=== PATIENT | female | born 1970 | race Caucasian/White ===

== ENCOUNTER 2017-05-10 10:14 | Emergency (ER) | payer BC ==
[2017-05-10 12:18] VITALS: BP 150/110
--- NOTE | 2017-05-10 12:47 | UC ---
Respiratory Complaint HPI - HPI Summary HPI Summary: 4 day history of uri symptoms that are not improving - History of Current Complaint Chief Complaint: UCRespiratory Stated Complaint: SINUS INFECTION/L EAR PAIN/COUGH Time Seen by Provider: 05/10/17 12:36 Hx Obtained From: Patient Hx Last Menstrual Period: 05/09/17 ?: No Onset/Duration: Gradual Onset, Lasting Days - 4, Still Present Timing: Constant Severity Initially: Moderate Severity Currently: Moderate - Allergies/Home Medications Allergies/Adverse Reactions: Allergies Allergy/AdvReac Type Severity Reaction Status Date / Time Penicillins Allergy Mild Rash Verified 05/10/17 10:30 Sulfa Drugs Allergy Mild Rash Verified 05/10/17 10:30 Erythromycin AdvReac Mild GI Upset Verified 05/10/17 10:30 Home Medications: Home Medications Hydrochlorothiazide TAB* [Hydrodiuril TAB*] 12.5 mg PO DAILY 05/10/17 [History Confirmed 05/10/17] PMH/Surg Hx/FS Hx/Imm Hx Previously Healthy: No Cardiovascular History: Hypertension - Surgical History Surgical History: Yes Surgery Procedure, Year, and Place: TONSILLECTOMY 1985 - Family History Known Family History: Positive: None, Unknown, Hypertension, Diabetes - Social History Occupation: Employed Full-time Lives: With Family Alcohol Use: Occasionally Substance Use Type: None Smoking Status (MU): Never Smoked Tobacco Review of Systems Constitutional: Chills, Fatigue Skin: Negative Eyes: Negative ENT: Ear Ache - left, Sinus Congestion, Sinus Pain/Tenderness Respiratory: Negative Cardiovascular: Negative Gastrointestinal: Negative Genitourinary: Negative Motor: Negative Neurovascular: Negative Musculoskeletal: Arthralgia Neurological: Headache Psychological: Negative Is Patient Immunocompromised?: No All Other Systems Reviewed And Are Negative: Yes Physical Exam Triage Information Reviewed: Yes Appearance: Well-Nourished, Ill-Appearing, Pain Distress Vital Signs: Initial Vital Signs Temp 99.4 F 05/10/17 10:31 Pulse 121 05/10/17 10:31 Resp 20 05/10/17 10:31 BP 145/96 05/10/17 10:31 Pulse Ox 99 05/10/17 10:31 Vital Signs Reviewed: Yes Eye Exam: Normal Eyes: Positive: Conjunctiva Clear ENT Exam: Normal ENT: Positive: Normal ENT inspection, Hearing grossly normal, Pharynx normal, Nasal congestion, Nasal drainage, TMs normal - right, TM bulging - left, Sinus tenderness, Uvula midline. Negative: Trismus, Muffled voice, Hoarse voice, Dental tenderness Dental Exam: Normal Neck exam: Normal Neck: Positive: Supple, Nontender, No Lymphadenopathy Respiratory Exam: Normal Respiratory: Positive: Chest non-tender, Lungs clear, Normal breath sounds, No respiratory distress, No accessory muscle use Cardiovascular Exam: Normal Cardiovascular: Positive: RRR, No Murmur, Brisk Capillary Refill, Tachycardia Musculoskeletal Exam: Normal Musculoskeletal: Positive: Strength Intact, ROM Intact, No Edema Neurological Exam: Normal Neurological: Positive: Alert, Muscle Tone Normal Psychological Exam: Normal Skin Exam: Normal UC Diagnostic Evaluation - Laboratory O2 Sat by Pulse Oximetry: 98 Diagnostic Studies Comment: Strep (-), Flu A/B (-) Respiratory Course/Dx - Course Course Of Treatment: Ceftin, flonase stop products with sudafed in them follow blood pressure with pcp - Differential Dx/Diagnosis Provider Diagnoses: Acute left otitis Media, Sinusitis Discharge - Discharge Plan Condition: Stable Disposition: HOME Prescriptions: Cefuroxime Axetil [Ceftin 500 MG TAB] 500 mg PO BID #14 tab Fluticasone NASAL SPRAY 50MCG* [Flonase NASAL SPRAY 50MCG*] 2 spray BOTH NARES DAILY #1 btl Patient Education Materials: Otitis Media (ED), Hypertension (ED), How to Use Nasal [place] (ED) Referrals: Brielle Diaz MD [Primary Care Provider] - 2 Weeks
== END 2017-05-10 13:05 | disposition home or self-care (01) ==
LOC: UCEAST 10:14
DX: H66.92 Otitis media, unspecified, left ear (principal); J32.9 Chronic sinusitis, unspecified; I10 Essential (primary) hypertension
CPT/HCPCS: 87502; 87651; 99212; G0463

== ENCOUNTER 2017-05-29 07:18 | Emergency (ER) | payer BC ==
[2017-05-29 07:52] VITALS: BP 140/115
--- NOTE | 2017-05-29 08:20 | UC ---
Esau Ritchie Jason, [facility] for [facility] on 05/29/17 at 0743 . Throat Pain/Nasal Reuben HPI - HPI Summary HPI Summary: In Room: This patient is a 46 year old F presenting to [facility] with a chief complaint of sore throat since 1 week ago. The patient rates the pain 4/10 in severity. Symptoms aggravated by swallowing. Symptoms alleviated by nothing. Patient reports sore throat, nasal congestion, trouble swallowing, and fatigue. Patient denies nausea, vomiting diarrhea, sinus pain, and ear symptoms. The patient includes that she has been seeing Dr. Zaysa (ENT) and had a dx of arthritis of the left stapes bone. Additionally, she states that when I was child I didnt have ear infections. Not until I was older I got a sinus infection and cold and began experiencing ear symptoms. After finishing the antibiotic treatment was completed from her visit on 05/10/17, she states her ear infection and cold was gone for a week and additional sx came back with a sore throat. The patient is currently taking Hydrochlorothiazide for HTN. MD note: Review of visit history: seen 05/10/17 with a dx of left otitis media , sinusitis, started on 7 days of ceftin. Previous hx of sore throat, ruptured ear drum, sinus congestion. Multiple allergies to antibiotics. Being treated for HTN. VSS, BP 140/115 discussed with patient. Nurses note: Patient states in April she had a cold with an ear infection. She came here and was started on an antibiotic. About a week later she started to have a sore throat again, which has been going on for a week now. She also has nasal congestion. Occasionally she has a productive cough with yellow phlegm . - History of Current Complaint Stated Complaint: SORE THROAT Time Seen by Provider: 05/29/17 07:24 Hx Obtained From: Patient Hx Last Menstrual Period: 05/09/17 Onset/Duration: Gradual Onset, Lasting Weeks - since 1 week ago, Still Present Pain Scale Used: 0-10 Numeric Cough: None Associated Signs & Symptoms: Positive: Rash - sore throat, nasal congestion, trouble swallowing, and fatigue. Patient denies nausea, vomiting diarrhea, sinus pain, ear symptoms - Allergies/Home Medications Allergies/Adverse Reactions: Allergies Allergy/AdvReac Type Severity Reaction Status Date / Time Penicillins Allergy Mild Rash Verified 05/29/17 07:41 Sulfa Drugs Allergy Mild Rash Verified 05/29/17 07:41 Erythromycin AdvReac Mild GI Upset Verified 05/29/17 07:41 Home Medications: Home Medications Cwxugybzfdirkgar-Rrxujgfpuiy-N [Coricidin Hbp Day & Night 10-20 &15-200-2 mg] 1 mis PO DAILY PRN 05/29/17 [History Confirmed 05/29/17] PMH/Surg Hx/FS Hx/Imm Hx Previously Healthy: No Cardiovascular History: Hypertension Other Respiratory History: Negative asthma Psychological History: Depression - Surgical History Surgical History: Yes Surgery Procedure, Year, and Place: TONSILLECTOMY 1985 - Family History Known Family History: Positive: Hypertension, Diabetes - Social History Occupation: Employed Full-time Alcohol Use: Occasionally Substance Use Type: None Smoking Status (MU): Never Smoked Tobacco Review of Systems All Other Systems Reviewed And Are Negative: Yes - Comments Additional Review of Systems Comments: A 12 point review of systems was completed and significantly positive for: sore throat, nasal congestion, trouble swallowing, and fatigue. The patient denied nausea, vomiting diarrhea, sinus pain, and ear symptoms. The remainder of the review was negative except as stated above in the HPI. Physical Exam Triage Information Reviewed: Yes - Additional Comments The patient is well-nourished in no acute distress and in no acute pain. The skin is warm and dry and skin color reflects adequate perfusion. HEENT: The head is normocephalic and atraumatic. The pupils are equal and reactive. The conjunctivae are clear and without drainage. Nares are patent and without drainage. Mouth reveals moist mucous membranes. The external ears are intact. The ear canals are patent and without drainage. The tympanic membranes are intact. MILDLY ERYTHEMATOUS POSTERIOR PHARYNX. PATIENT HAS NO TONSILS. NO EXUDATE. NO POSTERIOR OR ANTERIOR ADENOPATHY. Neck is supple with full range of motion and non-tender. There are no carotid bruits. There is no neck vein distension. Respiratory: Chest is non-tender. Lungs are clear to auscultation and breath sounds are symmetrical and equal. Cardiovascular: Heart is regular rate and rhythm. There is no murmur or rub auscultated. There is no peripheral edema and pulses are symmetrical and equal. Abdomen: The abdomen is soft and non-tender. There are normal bowel sounds heard in all four quadrants and there is no organomegaly palpated. Musculoskeletal: There is no back pain noted. Extremities are non-tender with full range of motion. There is good capillary refill. There is no peripheral edema or calf tenderness elicited. Neurological: Patient is alert and oriented to person, place and time. The patient has symmetrical motor strength in all four extremities. Cranial nerves are grossly intact. Deep tendon reflexes are symmetrical and equal in all four extremities. Psychiatric: The patient has an appropriate affect and does not exhibit any anxiety or depression Throat Pain/Nasal Course/Dx - Course Course Of Treatment: The patient is a healthy female with throat discomfort for a week. She has had recent sinus infection treated with Ceftin. Rapid strep was negative. 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 She agreed that the antibiotics would not be needed at this time. Elevated BP but has current hypertension diagnosis, patient on blood pressure medication. Patient referred to PCP within 1 day-4 wks for follow-up. Dx: sore throat, probable viral pharyngitis, and HTN. - Differential Dx/Diagnosis Differential Diagnosis/HQI/PQRI: Pharyngitis - viral, URI, Other - strep throat Provider Diagnoses: sore throat, probable viral pharyngitis, and HTN. Discharge - Discharge Plan Condition: Stable Disposition: HOME Patient Education Materials: Pharyngitis (ED) Referrals: Brielle Diaz MD [Primary Care Provider] - Additional Instructions: Thank you for helping us improve patient care by filling out the My Point Survey. WE DISCUSSED: 1. You have a viral pharyngitis. 2. Below are some strategies, that you probably know, to alleviate pain. USEFUL HOME REMEDIES: WARM WATER GARGLES, WITH TSP OF SALT PER 8 OUNCES OF WATER, GARGLE FOR A FEW SECONDS AND SPIT OUT; GARGLE AND SPIT OUT; EVERY THREE HOURS. AND/OR: WARM WATER OR TEA, HONEY AND LEMON; 2-3 CUPS A DAY. FOR SORE THROAT: KEEP THROAT MOIST WITH LOZENGES; TEA AND HONEY. USE WARM WATER GARGLES 3-4 TIMES A DAY. FOLLOW UP: RE-CHECK IN 1O DAYS, NEEDED, IF YOU ARE NOT IMPROVING. RETURN HERE OR SEE YOUR PHYSICIAN. Please seek care at ED if symptoms worsen or if new symptoms develop. Follow up with your physician for elevated blood pressure reading. The documentation as recorded by the Esau deluca Jason accurately reflects the service I personally performed and the decisions made by me, Reinaldo Fischer MD.
== END 2017-05-29 08:07 | disposition home or self-care (01) ==
LOC: UCEAST 07:18
DX: J02.9 Acute pharyngitis, unspecified (principal); R21 Rash and other nonspecific skin eruption; R09.81 Nasal congestion; R53.83 Other fatigue; I10 Essential (primary) hypertension; F32.9 Major depressive disorder, single episode, unspecified; Z88.1 Allergy status to other antibiotic agents; Z88.0 Allergy status to penicillin; Z88.2 Allergy status to sulfonamides
CPT/HCPCS: 87651; 99211; G0463

== ENCOUNTER 2018-04-29 20:15 | Emergency (ER) | payer BC ==
--- NOTE | 2018-04-29 21:38 | UC ---
Throat Pain/Nasal Reuben HPI - HPI Summary HPI Summary: 47 y/o female presents to the urgent care c/o sore throat, nasal congestion w/ yellowish nasal discharge and left ear pressure. Pt reports symptoms started w / a common cold about 1 week ago. Symptoms worsen on Friday04/25/2018 w/ sore throat, She has been taken Coricidin PO and Ibuprofen PO to alleviate symptoms w/o any improvement. Pain w/ swallowing and sinus pain is 5/10. Pt denies fever, dizziness, SOB, chest pain, visual disturbances, N/v/D. - History of Current Complaint Chief Complaint: UCGeneralIllness Stated Complaint: THROAT PAIN Time Seen by Provider: 04/29/18 21:25 Hx Obtained From: Patient Hx Last Menstrual Period: 04/16/18 ?: No Onset/Duration: Gradual Onset, Lasting Weeks - 1 week, Still Present, Worse Since - 3 days Severity: Mild Pain Intensity: 5 Pain Scale Used: 0-10 Numeric Cough: Nonproductive Associated Signs & Symptoms: Positive: Sinus Discomfort, Nasal Discharge - yellowish. Negative: Wheezing, Fever Related History: Seasonal Allergies - Epiglottits Risk Factors Epiglottis Risk Factors: Negative - Allergies/Home Medications Allergies/Adverse Reactions: Allergies Allergy/AdvReac Type Severity Reaction Status Date / Time erythromycin base Allergy Intermediate Rash Verified 04/29/18 20:49 Penicillins Allergy Intermediate Rash Verified 04/29/18 20:49 Sulfa (Sulfonamide Allergy Intermediate Rash Verified 04/29/18 20:49 Antibiotics) PMH/Surg Hx/FS Hx/Imm Hx Previously Healthy: Yes Endocrine History: Diabetes - Pre-DM Cardiovascular History: Hypertension Psychological History: Anxiety, Depression - Surgical History Surgical History: Yes Surgery Procedure, Year, and Place: TONSILLECTOMY 1985 - Family History Known Family History: Positive: Cardiac Disease, Hypertension, Diabetes - Social History Occupation: Employed Full-time Lives: With Family Alcohol Use: Weekly Substance Use Type: None Smoking Status (MU): Never Smoked Tobacco Review of Systems All Other Systems Reviewed And Are Negative: Yes Constitutional: Positive: Negative Skin: Positive: Negative Eyes: Positive: Negative ENT: Positive: Sore Throat, Ear Ache - Rt ear pain and pressure, Nasal Discharge - yellowish, Sinus Congestion, Other - +PND Respiratory: Positive: Negative Cardiovascular: Positive: Negative Gastrointestinal: Positive: Negative Genitourinary: Positive: Negative Motor: Positive: Negative Neurovascular: Positive: Negative Musculoskeletal: Positive: Negative Neurological: Positive: Headache Psychological: Positive: Negative Is Patient Immunocompromised?: No Physical Exam - Summary Physical Exam Summary: Vitals: reviewed General: Well developed, well-nourished obese female patient with NAD. Head and face: Normocephalic and atraumatic, Positive tenderness over the frontal and maxillary sinuses.. Eyes: PERRLA, EOMI x 2. Normal conjunctiva. No eye discharge. ENT: Ears and TM with normal limits. Nose: edematous and erythematous nasal mucosa with with yellowish discharge and erythematous mucosa. Pharynx with erythema, no exudate. + yellowish PND Neck: Supple, no JVD, no carotid bruits and no lymphadenopathy. Lungs: clear, no rales, no rhonchi, no wheezes. CVS: RRR, S1 and S2 present no murmurs or gallops appreciated. Abdomen: soft nontender with positive bowel sounds. Extremities: no edema noted. Neuro: WNL. Skin: warm and dry Triage Information Reviewed: Yes Vital Signs: Initial Vital Signs Temp 98.9 F 04/29/18 20:43 Pulse 101 04/29/18 20:43 Resp 18 04/29/18 20:43 BP 155/115 04/29/18 20:43 Pulse Ox 100 04/29/18 20:43 Throat Pain/Nasal Course/Dx - Course Course Of Treatment: Pt with 2 weeks of symptoms getting worse. Pt Rx Amoxicillin PO and flonase nasal spray. Tessalon PO for cough. Discharge instructions explained to Pt. Advised to Return to the clinic or PCP if symptoms do not improve.Pt understood and agreed with plan of care. Hx obtained. Pt w/ possible bacterial sinusitis on examination. Pt's BP Is 155/ 115 at triage. Pt BP taken manually 148/106. pt states she took her BP medication at home, but sometimes her BP gets elevated when she sees the doctor. Pt hemodynamically stable. Pt with 1 week of symptoms getting worse. Pt Rx Doxycycline PO and flonase nasal spray. first dose given at the clinic tonight. Advised to take Ibuprofen PO to alleviate sinus pain and FLORES. Discharge instructions explained to Pt. Advised to Return to the clinic or PCP if symptoms do not improve. D/C instructions explained. Pt understood and agreed with plan of care. - Differential Dx/Diagnosis Differential Diagnosis/HQI/PQRI: Laryngitis, Mononucleosis, Otitis Media, Pharyngitis, Sinusitis, Tonsillitis, URI Provider Diagnoses: 1- Acute bacterial sinusitis. 2- Uncontrolled HTN Discharge - Sign-Out/Discharge Documenting (check all that apply): Patient Departure All imaging exams completed and their final reports reviewed: No Studies - Discharge Plan Condition: Stable Disposition: HOME Prescriptions: DOXYcycline CAP(*) [DOXYcycline 100MG CAP(*)] 100 mg PO BID #19 cap Fluticasone NASAL SPRAY 50MCG* [Flonase NASAL SPRAY 50MCG*] 2 spray BOTH NARES DAILY #1 btl Patient Education Materials: Sinusitis (ED), Low-Sodium Diet (ED) Referrals: Brielle Diaz MD [Primary Care Provider] - Additional Instructions: 1- Please increase fluid intake and rest. take full course of antibiotic to avoid resistance 2-Use Flonase as directed to help drain fluid. Also buy saline drops to clear sinuses 3-Take Ibuprofen PO to alleviates sinus pain and headache 4-Return to the clinic or PCP if symptoms do not improve for further management and treatment 5-Your BP is elevated today. please decrease salt in your diet, monitor BP and if it continues to be elevated please f/u with your PCP for further management. Please take your BP medication and monitor your BP and if it continues to be elevated and you develop severe FLORES, visual disturbances, SOB, dizziness, or chest pain please go immediately to the ER for further management. - Billing Disposition and Condition Condition: STABLE Disposition: Home
[2018-04-29] MEDS: DOXYcycline CAP(*) 100 MG PO ONE (21:52)
[2018-04-29 22:01] VITALS: BP 148/106
== END 2018-04-29 22:12 | disposition home or self-care (01) ==
LOC: UCEAST 20:15
DX: J01.90 Acute sinusitis, unspecified (principal); B96.89 Other specified bacterial agents as the cause of diseases classified elsewhere; Z88.0 Allergy status to penicillin; E88.1 Lipodystrophy, not elsewhere classified; R73.03 Prediabetes; I10 Essential (primary) hypertension
CPT/HCPCS: 87651; 99212; A9270-GY; G0463

== ENCOUNTER 2018-11-28 17:08 | Emergency (ER) | payer BC ==
--- NOTE | 2018-11-28 17:17 | UC ---
Throat Pain/Nasal Reuben HPI - HPI Summary HPI Summary: worsening sinus pain and congestion for the past 7 days - History of Current Complaint Chief Complaint: UCRespiratory Stated Complaint: SINUS/EAR PAIN Time Seen by Provider: 11/28/18 17:15 Hx Obtained From: Patient Hx Last Menstrual Period: 04/16/18 ?: No Onset/Duration: Gradual Onset, Lasting Days - 7, Worse Since - daily Pain Intensity: 6 Pain Scale Used: 0-10 Numeric Cough: None Associated Signs & Symptoms: Positive: Sinus Discomfort, Nasal Discharge - Allergies/Home Medications Allergies/Adverse Reactions: Allergies Allergy/AdvReac Type Severity Reaction Status Date / Time erythromycin base Allergy Intermediate Rash Verified 11/28/18 17:18 Penicillins Allergy Intermediate Rash Verified 11/28/18 17:18 Sulfa (Sulfonamide Allergy Intermediate Rash Verified 11/28/18 17:18 Antibiotics) PMH/Surg Hx/FS Hx/Imm Hx Previously Healthy: No Cardiovascular History: Hypertension Psychological History: Depression - Surgical History Surgical History: Yes Surgery Procedure, Year, and Place: TONSILLECTOMY 1985 - Family History Known Family History: Positive: None, Unknown, Cardiac Disease, Hypertension, Diabetes - Social History Occupation: Employed Full-time Lives: Alone Alcohol Use: Weekly Substance Use Type: None Smoking Status (MU): Never Smoked Tobacco Review of Systems All Other Systems Reviewed And Are Negative: Yes Constitutional: Positive: Negative Skin: Positive: Negative Eyes: Positive: Negative ENT: Positive: Ear Ache, Nasal Discharge, Sinus Congestion, Sinus Pain/ Tenderness Respiratory: Positive: Negative Cardiovascular: Positive: Negative Gastrointestinal: Positive: Negative Genitourinary: Positive: Negative Motor: Positive: Negative Neurovascular: Positive: Negative Musculoskeletal: Positive: Negative Neurological: Positive: Headache Psychological: Positive: Negative Is Patient Immunocompromised?: No Physical Exam Triage Information Reviewed: Yes Appearance: Well-Nourished, Ill-Appearing, Pain Distress Vital Signs Reviewed: Yes Eye Exam: Normal Eyes: Positive: Conjunctiva Clear ENT Exam: Normal ENT: Positive: Normal ENT inspection, Hearing grossly normal, Pharynx normal, Nasal congestion, Nasal drainage, TMs normal, Sinus tenderness, Uvula midline. Negative: Tonsillar swelling, Tonsillar exudate, Trismus, Muffled voice, Hoarse voice, Dental tenderness Dental Exam: Normal Neck exam: Normal Neck: Positive: Supple, Nontender, No Lymphadenopathy Respiratory Exam: Normal Respiratory: Positive: Chest non-tender, Lungs clear, Normal breath sounds, No respiratory distress, No accessory muscle use Cardiovascular Exam: Normal Cardiovascular: Positive: RRR, No Murmur, Pulses Normal, Brisk Capillary Refill Musculoskeletal Exam: Normal Musculoskeletal: Positive: Strength Intact, ROM Intact, No Edema Neurological Exam: Normal Neurological: Positive: Alert, Muscle Tone Normal Psychological Exam: Normal Skin Exam: Normal Throat Pain/Nasal Course/Dx - Course Course Of Treatment: flonase, doxycycline---patient states she is unable to do nasal washing--- follow with pcp prn - Differential Dx/Diagnosis Provider Diagnosis: Acute sinusitis Discharge - Sign-Out/Discharge Documenting (check all that apply): Patient Departure All imaging exams completed and their final reports reviewed: No Studies - Discharge Plan Condition: Stable Disposition: HOME Prescriptions: DOXYcycline CAP(*) [DOXYcycline 100MG CAP(*)] 100 mg PO BID #20 cap Patient Education Materials: Sinusitis (ED), How to Use Nasal [place] (ED) Referrals: Brielle Diaz MD [Primary Care Provider] - If Needed - Billing Disposition and Condition Condition: STABLE Disposition: Home
[2018-11-28 17:18] VITALS: BP 132/94
== END 2018-11-28 17:39 | disposition home or self-care (01) ==
LOC: UCEAST 17:08
DX: J01.90 Acute sinusitis, unspecified (principal); Z88.1 Allergy status to other antibiotic agents; Z88.0 Allergy status to penicillin; Z88.2 Allergy status to sulfonamides
CPT/HCPCS: 99212; G0463

== ENCOUNTER 2019-01-04 11:54 | Emergency (ER) | payer BC, OTHER ==
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
--- OUTSIDE RECORDS SUMMARY | 2019-01-04 13:14 | XMS REPORT | Continuity of Care Document ---
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 Brielle Diaz MD Primary Care Physician Unavailable Payers Date Identification Numbers Payment Provider Subscriber Effective: 2010 Policy Number: [id number] BS Of YONY Pitts Expires: 2015 PayID: [id number] [address] [address] [place] Reg[place] [address] Expires: 2010 Policy Number: [id number] BS Of YONY Pitts PayID: [id number] [address] [address] [place] [address] Policy Number: [id number] [employer] Lala Pitts PayID: [id number] [address] [address] [place], [place] [address] Expires: 2018 Policy Number: [id number] BS Of YONY Pitts Group Number: [id number] PO Box Group Name: BS [place] [address] PayID: [id number] Expires: 2018 Policy Number: [id number] BS Of YONY Pitts Group Number: [id number] PO Box PayID: [id number] [place] Regan [address] Problems Active Problems Provider Date Otalgia Reza Zayas M.D. Onset: 04/13/2015 Acute maxillary sinusitis Reza Zayas M.D. 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 Tobacco Use Start: Unknown Never Smoked Cigarettes Tobacco Use Start: Unknown Never Smoked Cigars Tobacco Use Start: Unknown Never Smoked A Pipe Smoking Status Reviewed: 01/01/19 Never Smoked A Pipe ETOH Use Occasionally consumes alcohol Tobacco Use Start: Unknown Patient has never smoked Recreational Drug Use Never Used Drugs Exercise Type/Frequency Exercises sporadically Allergies, Adverse Reactions, Alerts Active Allergies Reaction Severity Comments Date PCN 02/03/2007 Sulfa Rash 02/03/2007 E-Mycin GI Upset 02/03/2007 Medications Active Medications SIG Qnty Indications Ordering Date Provider Motrin 3 po qd prn 120tabs Other Physician 200mg. Tablets Practices Lexapro 1 by mouth Unknown 10mg Tablets every day Hydrochlorothiazide 1 by mouth Unknown 25mg Tablets every day Clindamycin Phos-Benzoyl apply to 45units Unknown Perox affected area 1-5% Gel every day Aczone apply to Unknown 7.5% Gel affected area every day Tretinoin apply to Unknown 0.025% Cream affected area every day Genteal Tears Liquid Drops 1 drop to each Unknown Moderate eye 0-2 times 0.1-0.2-0.3% Solution per day as needed History Medications Clarithromycin Take 1 tablet by 20tabs H92.02 Reza Zayas, 2014 - 500mg mouth every 12 M.D. 10/14/2018 Tablets hours for 10 days for sinusitis Abilify 1 po qd Roger Chiu, 08/02/2008 - 5mg Tablets M.D. 10/28/2008 Abilify bid Roger Chiu, 06/23/2008 - 2mg Tablets M.D. 08/02/2008 Abilify qd Roger Chiu, 06/23/2008 - 5mg Tablets M.D. 06/23/2008 Keflex 1 po bid 20caps Roger Chiu, 07/30/2007 - 500mg Capsules M.D. 06/23/2008 Mary Ann 1 PO qd Roger Chiu, 04/16/2007 - 3-0.02mg Tablets M.D. 06/23/2008 Lorazepam 1 PO qd prn Roger Chiu, 02/03/2007 - 1mg Tablets M.D. 04/16/2007 Re 1 PO qd prn 90taTra Perez MD - 180mg Tablets 04/16/2007 Flexeril 1 PO tid prn 30taTra Perez MD - 10mg Tablets 04/16/2007 Prevacid 1 PO qd 90Tra Landrum MD - 30mg Capsules 04/16/2007 DR Rader 3 PO QHS 30caps Other Physician - 2mg. Capsules Practices 07/30/2007 Xanax 1 PO qd-bid prn 60taTra Perez MD - 0.5mg Tablets 10/28/2008 Prozac 2 PO qd 90caps Other Physician - 40mg. Capsules Practices 10/28/2008 Buspar 1 po bid Other Physician - 15 Tablets Practices 10/28/2008 Pataday 1 drop in each Unknown - 0.2% Solution eye once daily 12/31/2018 Medications Administered in Office Medication SIG Qnty Indications Ordering Provider Date PPD Nurse Visits - DR Chiu 11/29/2009 Injection MARLO Chiu M.D. 11/29/2009 Injection PPD Nurse Visit Samuel 11/08/2009 Injection MARLO Chiu M.D. 06/30/2008 Injection MARLO Chiu M.D. 05/13/2007 Injection MARLO Chiu M.D. 05/13/2007 Injection Immunizations CPT Code Status Date Vaccine Lot # [id number] Given 07/08/2002 Td (History By Patient) Vital Signs Date Vital Result Comment 01/01/2019 10:20am Height 59 inches 4'11" Weight 176.00 lb Heart Rate 84 /min BP Systolic Sitting 118 mmHg Lue reg cuff BP Diastolic Sitting 90 mmHg Lue reg cuff Respiratory Rate 20 /min O2 % BldC Oximetry 98 % On Ra BMI (Body Mass Index) 35.5 kg/m2 10/15/2018 8:52am Height 59 inches 4'11" Weight 178.00 lb Heart Rate 66 /min BP Systolic Sitting 118 mmHg Left Upper Arm Regular Cuff BP Diastolic Sitting 78 mmHg Left Upper Arm Regular Cuff Respiratory Rate 12 /min O2 % BldC Oximetry 98 % BMI (Body Mass Index) 35.9 kg/m2 08/12/2018 7:32am Height 59 inches 4'11" Weight 172.50 lb Heart Rate 86 /min BP Systolic Sitting 140 mmHg Lue regular cuff BP Diastolic Sitting 100 mmHg Lue regular cuff Respiratory Rate 12 /min O2 % BldC Oximetry 97 % BMI (Body Mass Index) 34.8 kg/m2 Neck Circumference in inches 13.50 04/13/2015 10:06am Weight 162.00 lb Heart Rate 72 /min BP Systolic Sitting 118 mmHg BP Diastolic Sitting 74 mmHg 07/24/2010 2:23pm Weight 163.00 lb Heart Rate 86 /min BP Systolic Sitting 114 mmHg BP Diastolic Sitting 76 mmHg 11/10/2009 11:13am Weight 163.00 lb Heart Rate 80 /min BP Systolic Sitting 110 mmHg BP Diastolic Sitting 70 mmHg 03/22/2009 3:47pm Heart Rate 96 /min BP Systolic Sitting 116 mmHg BP Diastolic Sitting 80 mmHg Body Temperature 99.9 F 10/28/2008 10:29am Weight 166.00 lb Heart Rate 88 /min BP Systolic Sitting 110 mmHg BP Diastolic Sitting 76 mmHg 08/02/2008 3:08pm Height 59 inches 4'11" Weight 166.00 lb Heart Rate 96 /min BP Systolic Sitting 122 mmHg BP Diastolic Sitting 84 mmHg BMI (Body Mass Index) 33.5 kg/m2 06/23/2008 9:03am Height 59 inches 4'11" Weight 168.00 lb Heart Rate 90 /min BP Systolic Sitting 124 mmHg BP Diastolic Sitting 90 mmHg BMI (Body Mass Index) 33.9 kg/m2 07/30/2007 3:06pm Height 59 inches 4'11" Heart Rate 64 /min BP Systolic Sitting 108 mmHg BP Diastolic Sitting 80 mmHg Body Temperature 100.4 F 04/16/2007 2:14pm Height 59 inches 4'11" Weight 144.00 lb Heart Rate 84 /min BP Systolic Sitting 110 mmHg BP Diastolic Sitting 74 mmHg BMI (Body Mass Index) 29.1 kg/m2 Results Test Date Facility Test Result H/L Range Note Human Papilloma 01/22/2013 [facility] Human See Comment [address] [place] [address] Source [phone] Human Papillomavirus High Risk Negative Negative 2 Cytology 01/21/2013 [facility] Cy RUN DATE: [address] <[place] [address] NOTE> [phone] Cytology 01/20/2012 [facility] Cytology [address] ----- <[place] [address] NOTE> [phone] Throat Culture 10/11/2011 [facility] M [address] ----- [place] [address] NOTE> [phone] Throat-Beta 06/22/2011 [facility] M [address] ----- <[place] [address] NOTE> [phone] Cytology 01/18/2011 [facility] Cytology [address] ----- <[place] [address] NOTE> [phone] Throat-Beta 12/16/2009 [facility] Throat-Beta NF [address] [place] [address] [phone] Laboratory test 08/02/2008 [facility] Thyroxine Free 0.86 NG/ML 0.61- 9, [address] [place] [address] [phone] Rheumatoid Factor < 20.0 IU/mL Less Than 20 Erythrocyte Sed Rate 30 MM/HR High 0-15 Dana (Antinuclear Antibodies) NEGATIVE Negative Lyme Disease Serology Negative Negative 11 Laboratory test 06/23/2008 [facility] TSH 1.57 MIU/ML 0.34- 5.60 [address] [place] [address] [phone] Lipid Profile 06/23/2008 [facility] Triglyceride 65 mg/dL 40- 200 (Trig/Chol/HDL) [address] [place] [address] [phone] Cholesterol 198 mg/dL Less Than 200 13 High Density Lipoprotein 54 mg/dL 40-60 14 Cholesterol/HDL Ratio 3.67 AVERAGE 1-4.44 Low Density Lipoprotein 131 mg/dL High Less Than 100 15 Comp Metabolic Panel 06/23/2008 [facility] Sodium 136 mmol/L 135-[address] [place] [address] [phone] Potassium 4.5 mmol/L 3.5-5.0 Chloride 104 mmol/L 101-111 Co2 (Carbon Dioxide) 25.0 mmol/L 22-32 Anion Gap 7.0 mmol/L 2-11 16 Glucose 101 mg/dL High 70-100 17 BUN 6 mg/dL 6-24 Creatinine 0.80 mg/dL 0.50-1.40 One Over Creatinine 1.20 BUN/Creatinine Ratio 7.5 Low 8-20 Calcium 9.3 mg/dL 8.1-9.9 18 Total Protein 5.9 GM/DL Low 6.2-8.1 Albumin 3.5 GM/DL Low 3.6-5.4 Globulin 2.4 GM/DL 2-4 Albumin/Globulin Ratio 1.5 1-3 Bilirubin Total 0.5 mg/dL 0.4-1.5 Alkaline Phosphatase 98 U/L 30-110 Alt (SGPT) 35 U/L 14-54 Ast (Sgot) 26 U/L 12-42 CBC With 06/23/2008 [facility] White Blood 7.1 CUMM 4.8-10.8 Electronic Diff [address] [place] [address] [phone] Red Cell Count 3.83 CUMM Low 4.2-5.4 Hemoglobin 11.8 g/dL Low 12.0-16.0 Hematocrit 35 % 35-47 Mean Corpuscular Volume 91 um3 79-97 Mean Corpuscular Hemoglob 31 pg 27-31 Mean Corpuscular HGB Cone 34 g/dL 32-36 Redcell Distribution WDTH 13 % 10.5-15 Platelet Count 447 CUMM 150-450 Mean Platelet Volume 7.6 um3 7.4-10.4 Gran % 71.4 % 38-83 Lymph % 20.3 % Low 25-47 Mononuclear % 6.3 % 1-9 Eosinophil % 1.5 % 0-6 Basophil % 0.5 % 0-2 Abs Lymphs 1.4 1.0-4.8 Abs Mononuclear 0.4 0-0.8 Absolute Neutrophil Count 5.1 1.5-7.7 Abs Eosinophils 0.1 0-0.6 Abs Basophils 0 0-0.2 Throat-Beta Strept 11/04/2007 [facility] Throat-Beta Strep NGNBS [address] [place] [address] [phone] Throat-Beta Strept 07/30/2007 [facility] Throat-Beta Strep NGNBS 20, [address] [place] [address] [phone] Comp Metabolic 04/16/2007 [facility] One Over 1.[address] [place] [address] [phone] Anion Gap 7.0 mmol/L 2-11 22 Albumin/Globulin Ratio 1.3 1-3 Albumin 3.7 GM/DL 3.6-5.4 Alkaline Phosphatase 65 U/L 30-110 Alt (SGPT) 20 U/L 14-54 Ast (Sgot) 20 U/L 12-42 BUN 10 mg/dL 6-24 Calcium 9.6 mg/dL 8.7-10.2 Chloride 108 mmol/L 101-111 Co2 (Carbon Dioxide) 25.0 mmol/L 22-32 Globulin 2.8 GM/DL 2-4 Glucose 85 mg/dL 70-105 Potassium 4.9 mmol/L 3.5-5.0 Sodium 140 mmol/L 135-145 Bilirubin Total 0.3 mg/dL Low 0.4-1.5 Total Protein 6.5 GM/DL 6.2-8.1 BUN/Creatinine Ratio 12.5 8-20 Creatinine 0.8 mg/dL 0.5-1.4 Laboratory test 04/16/2007 [facility] TSH 0.98 MIU/ML 0.34- 5.[address] [place] [address] [phone] CBC W/ Electronic 04/16/2007 [facility] White Blood 7.8 CUMM 4.8-10.[address] [place] [address] [phone] Abs Basophils 0 0-0.2 Abs Eosinophils 0.1 0-0.6 Absolute Neutrophil Count 5.2 1.5-7.7 Abs Lymphs 1.8 1.0-4.8 Abs Mononuclear 0.6 0-0.8 Basophil % 0.4 % 0-2 Hematocrit 35 % 35-47 Hemoglobin 11.9 g/dL Low 12.0-16.0 Eosinophil % 1.8 % 0-6 Gran % 67.1 % 38-83 Lymph % 22.8 % 20-45 Mean Corpuscular HGB Cone 34 g/dL 32-36 Mean Corpuscular Hemoglob 32 pg High 27-31 Mean Corpuscular Volume 94 um3 79-97 Mean Platelet Volume 8.3 um3 7.4-10.4 Mononuclear % 7.9 % 1-9 Platelet Count 388 CUMM 150-450 Red Cell Count 3.78 CUMM Low 4.2-5.4 Redcell Distribution WDTH 13 % 10.5-15 Laboratory test 04/16/2007 [facility] Free Thyroxine 0.75 NG/ML 0.61-1.24 23 finding [facility] [place] [address] [phone] Laboratory test 01/05/2007 [facility] CA 125 10.4 U/ML 2.0- 35.0 24 finding [address] [facility] ([place] [address] Cancer Ag) [phone] Alphafetoprotein Tumor Marker 1.6 NG/ML <6.0 25 1 RESULT: Ectocervical/Endocervical 2 For types 16, 18, 31, 33, 35, 39, 45, 51, 52, 56, 58, 59 and 68. Test Performed by: [address] [address] Piece Maker: Prashanth Ponce III, M.D. 3 RUN DATE: 01/22/13 [facility] LAB LIVE PAGE 1 RUN TIME: 6851 [address] [employer] [place], [place] [address] Specimen Inquiry Name: LALA PITTS : [address]: Marva Pettit NP Acct: [id number] Unit: [id number] AGE: 42 Location: [facility] Re01/21/13 SEX: F Status: REG REF SPEC: [id number] FAISAL: 01/21/13-[address] [facility] [address]: Marva Pettit NP REQ: [id number] RECD: 01/21/13-1324 STATUS: ROGER COY DR: Roger Chiu III, MD _ ORDERED: IMAGE ANALYSIS, HPV / Thin Prep FINAL DIAGNOSIS Negative for Intraepithelial lesion or Malignancy Endometrial cells in a woman over or equal to 40 years of age COMMENTS: Endometrial cells after age 40, particularly out of phase or after menopause may be associated with benign endometrium, hormonal alterations and less commonly, endometrial/uterine abnormalities. Clinical correlation is recommended. Endometrial cells correlate with the menstrual history provided. Specimen sent to [facility] in [place], [place] on 01/22/13 by [id number] at 1238. Results will be reported separately. A. Ectocervical/Endocervical Specimen Adequacy: Satisfactory of evaluation Transformation zone component identified Patient Information: HPV: High risk HPV DNA testing regardless of pap results. Actual Specimen Date: 01/21/13 Last Menstrual Date: 01/20/13 Cautery: N IUD: N Lesion, grossly demonstrate: N Radiation Y/N? N ?: N Post Menopausal?: N Hysterectomy?: N Previous Abnormal Pap Smears?:N CONTINUED ON NEXT PAGE * ML=Testing performed at Main Lab DEPARTMENT OF PATHOLOGY, [address] [place] [address] Elpidio Haywood M.D. Director [facility] Permit #[id number] RUN DATE: 01/22/13 [facility] LAB LIVE PAGE 2 RUN TIME: [address] [place] [address] Specimen Inquiry Patient: LALA PITTS [id number] (Continued) CYTOLOGY PATIENT INFORMATION (Continued) Signed (signature on file) Krissy Aguero MD 02/26 8446 This Pap test was evaluated with the assistance of the [employer] Test Imaging System. Due to cytologic findings at the contour grinder microscope, comprehensive manual rescreening by a Medicare Biller may be required. The Pap Smear is a screening test designed to aid in the detection of premalignant and malignant conditions of the uterine cervix. It is not a diagnostic procedure and should not be used as the sole means of detecting cervical cancer. Both false- positive and false- negative reports do occur. Depending on your risk status, a Pap smear shoudl be obtained and evaluated every 1-3 years. END OF REPORT * ML=Testing performed at Main Lab DEPARTMENT OF PATHOLOGY, [address] [place] [address] Elpidio Haywood M.D. [facility] Permit #[id number] --- RUN DATE: 01/24/12 [facility] NMI LIVE PAGE 1 RUN TIME: 837 Specimen Inquiry RUN USER: INTERFACE -- Name: LALA PITTS Status: REG REF Re01/20/12 Age/Sex: 41/F Unit#: [id number] Location: [facility] : [birth year] -- Specimen: [id number] SOUT Spec Date:01/20/12-[address]: Marva tubbs NP Spec Type: CYTOLOGY Received:01/21/12 Copies to: Roger Chiu III, MD SOURCE ECTOCERVICAL/ENDOCERVICAL Thin Prep with Reflex HPV Test PATIENT INFORMATION ACTUAL COLLECTION DATE: 01/20/12 ? No POST MENOPAUSAL? No HYSTERECTOMY? No PREVIOUS ABNORMAL PAP SMEARS No LAST MENSTRUAL PERIOD: 01/08/12 ADEQUACY OF SPECIMEN Satisfactory for evaluation * Transformation zone component identified * DIAGNOSIS NEGATIVE FOR INTRAEPITHELIAL LESION OR MALIGNANCY * NOTE Specimen sent to [facility] in [place], [place] on 01/21/12 by DB at 0920. Results will be reported separately in an addendum. ADDENDUM Addendum #1 Entered: 01/24/12 [facility] Human Papilloma Virus test results received with preparation and diagnosis completed by [facility], [place], [place]. Results: NEGATIVE High Risk (for types 16, 18, 31, 33, 35, 39, 45, 51, 52, 56, 58, 59, 68) This test was developed and its performance characteristics determined by -- DEPARTMENT OF PATHOLOGY, [address] [place] [address] [facility] Permit #[id number] Elpidio Haywood M.D. Director Bhupinder Harris M.D. Notching Press Operator juan -- -- RUN DATE: 01/24/12 [facility] NMI LIVE PAGE 2 RUN TIME: 837 Specimen Inquiry RUN USER: INTERFACE -- Name: LALA PITTS Status: REG REF Re01/20/12 Age/Sex: 41/F Unit#: [id number] Location: [facility] : [birth year] -- -- CONTINUED -- ADDENDUM (Continued) Laboratory Medicine and Pathology, [place], [place]. It has not been cleared or approved by the U.S. Food and Drug Administration. Test Performed by: [facility] Dpt of lab Med and Pathology [address] [facility] [address] Piece Maker: Prashanth Ponce III, M.D. Original hard copy report from [facility] is available upon request by calling Pathology at [phone]. Addendum Review Kael ORTIZ([facility]) 01/24/12 -- This Pap test was evaluated with the assistance of the [employer] Pap Test Imaging System. The Pap Smear is a screening test designed to aid in the detection of premalign ant and malignant conditions of the uterine cervix. It is not a diagnostic procedure a nd should not be used as the sole means of detecting cervical cancer. Both false- positiv e and false-negative reports do occur. Depending on your risk status, a Pap smear rere uld be obtained and evaluated every one to three years. Final Interpretation electronically signed by: Kael ORTIZ([facility]) 01/21/12 115 3 -- -- DEPARTMENT OF PATHOLOGY, [address] [place] [address] [facility] Permit #[id number] Elpidio Haywood M.D. Director Bhupinder Harris M.D. [employer]ching Press Operator Dir juan -- 5 RUN DATE: 10/13/11 [facility] NMI LIVE PAGE 1 RUN TIME: 1127 Specimen Inquiry RUN USER: INTERFACE Name: LALA PITTS Status: ROSY CLI Re10/11/11 Age/Sex: 40/F Unit#: [id number] Location: : [birth year] SPEC #: [id number] FAISAL: 10/11/11-1632 STATUS: COMP REQ #: [id number] RECD: 10/11/[address]: Kym DICKERSON,Nic Munguia SOURCE: THROAT ENTR: 10/11/[address]: Apple REYES MD, Roger [facility]: ORDERED: THROAT CULTURE ACT WKST: B 10/13/11 #1 Procedure Result Verified Site > THROAT CULTURE FULL Final 10/13/11- 1127 ML NORMAL THROAT SIGIFREDO FULL THROAT CULTURES ARE CLINICALLY INDICATED TO DETECT THE PRESENCE OF GROUP A STREP, ARCANOBACTERIUM AND YEAST. ML - [facility] Permit #[id number] [address] [place] [address] DEPARTMENT OF PATHOLOGY, [address] [place] [address] [facility] Permit #[id number] Elpidio Haywood M.D. Director Bhupinder Harris M.D. Business Area Director 6 RUN DATE: 06/25/11 [facility] NMI LIVE PAGE 1 RUN TIME: 815 Specimen Inquiry RUN USER: INTERFACE Name: LALA PITTS Status: ROSY PEREZ Re06/22/11 Age/Sex: 40/F Unit#: [id number] Location: : 68 SPEC #: [id number] FAISAL: 06/22/11 STATUS: LORENA REQ #: [id number] RECD: 06/23/[address] [facility] [address]: Aaliyah DICKERSON,Reinaldo Meyers SOURCE: THROAT ENTR: 06/23/[address]: Apple REYES MD, Roger [facility]: ORDERED: THROAT-BETA STR ACT WKST: BS 06/25/11 #1 Procedure Result Verified Site > THROAT-BETA STREP CULTURE Final 06/25/11815 ML NEGATIVE FOR GROUP A BETA STREPTOCOCCUS ML - [facility] State Permit #[id number] [address] [place] [address] DEPARTMENT OF PATHOLOGY, [address] [place] [address] [facility] Permit #[id number] Dulce Vincent M.D. Business Area Director 7 --- RUN DATE: 01/21/11 [facility] NMI LIVE PAGE 1 RUN TIME: 1243 Specimen Inquiry RUN USER: INTERFACE -- Name: LALA PITTS Status: REG REF Re01/18/11 Age/Sex: 40/F Unit#: [id number] Location: [facility] : 68 -- Specimen: [id number] SOUT Spec Date: 01/18/11 [facility] Dr: Cedric saldaña MD Spec Type: CYTOLOGY Received: 01/21/11-1029 Copies to: Roger Chiu III, MD SOURCE ECTOCERVICAL/ENDOCERVICAL Thin Prep with Reflex HPV Test PATIENT INFORMATION ACTUAL COLLECTION DATE: 01/18/11 ? No POST MENOPAUSAL? No HYSTERECTOMY? No PREVIOUS ABNORMAL PAP SMEARS No LAST MENSTRUAL PERIOD: 12/23/10 ADEQUACY OF SPECIMEN Satisfactory for evaluation * Transformation zone component not identified * DIAGNOSIS NEGATIVE FOR INTRAEPITHELIAL LESION OR MALIGNANCY * NOTE Specimen sent to [facility] in [place], [place] on 01/21/11 by DB at 1207. Results will be reported separately in an addendum. This Pap test was evaluated with the assistance of the [employer]in[employer] Pap Test Imaging System. The Pap Smear is a screening test designed to aid in the detection of premalign ant and malignant conditions of the uterine cervix. It is not a diagnostic procedure a nd should not be used as the sole means of detecting cervical cancer. Both false- positiv e and false-negative reports do occur. Depending on your risk status, a Pap smear rere uld be obtained and evaluated every one to three years. -- DEPARTMENT OF PATHOLOGY, [address] [place] [address] [facility] Permit #[id number] Elpidio Haywood M.D. Director Bhupinder Harris M.D. Notching Press Operator Dir juan -- -- RUN DATE: 01/21/11 [facility] NMI LIVE PAGE 2 RUN TIME: 1243 Specimen Inquiry RUN USER: INTERFACE -- Name: JORJE PITTSA Status: REG REF Re01/18/11 Age/Sex: 40/F Unit#: [id number] Location: [facility] : [birth year] -- -- CONTINUED -- Final Interpretation electronically signed by: Kael ORTIZ([facility]) 01/21/11 124 2 -- -- DEPARTMENT OF PATHOLOGY, [address] [place] [address] [facility] Permit #[id number] Elpidio Haywood M.D. Director Bhupinder Harris M.D. Notching Press Operator Dir juan -- 8 NEGATIVE FOR GROUP A BETA STREPTOCOCCUS 9 PATIENT MAY HAVE RESULTS PER DOCTOR'S AUTHORIZATION. Questions regarding this report should be directed to your doctor. 10 PLEASE NOTE NEW REFERENCE RANGES. 11 Test Performed by: [facility] Dpt of Lab Med and Pathology [address] [place] [address] Piece Maker: Prashanth Ponce III, M.D. 12 FASTING PATIENT MAY HAVE RESULTS PER DOCTOR'S AUTHORIZATION. Questions regarding this report should be directed to your doctor. 13 CHOLESTEROL INTERPRETATION: Desirable: Less than 200 MG/DL Borderline-High Risk: 200-239 MG/DL High-Risk: 240 MG/DL and over 14 HDL INTERPRETATION: Undesirable: High Risk: Less than 40 MG/DL Desirable: Low Risk: Greater than 60 MG/DL 15 LDL INTERPRETATION: Low Risk Optimal Level: LDL Less than 100 MG/DL Near or Above Optimal: LDL 100-129 MG/DL Borderline High Risk: LDL 130-159 MG/DL High Risk: LDL 160-189 MG/DL Very High Risk: LDL Greater than 189 MG/DL 16 Anion gap measurement may be of limited value in the presence of any alkalosis, especially in a combined acid base disorder. . 17 Note change in reference range as of 02/04/08. The change was based on recommendations from the [place] [employer]. 18 Please note change in reference range effective 07 . 19 NEGATIVE FOR GROUP A STREP 20 PATIENT MAY HAVE RESULTS PER DOCTOR'S AUTHORIZATION. Questions regarding this report should be directed to your doctor. 21 NEGATIVE FOR GROUP A STREP 22 Anion gap measurement may be of limited value in the presence of any alkalosis, especially in a combined acid base disorder. . 23 PLEASE NOTE NEW REFERENCE RANGES. 24 The CA 125 assay is not recommended as a cancer screening test, but rather as an aid in monitoring response to therapy for patients with epithelial ovarian cancer. Serial testing for patients CA 125 assay values should be used in conjunction with other methods used for screening ovarian cancer. . 25 ASSAY BY IMMUNOCHEMILUMINOMETRIC ASSAY ON THE CHERELLE-NEGRA DXI-800. VALUES OBTAINED WITH DIFFERENT METHODS OR KITS CANNOT BE USED INTERCHANGEABLY FOR PATIENT MONITORING. RESULTS CANNOT BE INTERPRETED ABSOLUTE EVIDENCE OF THE PRESENCE OR ABSENCE OF MALIGNANCY. THE TEST IS NOT INTERPRETABLE IN . TEST PERFORMED BY: [facility]. [id number] [place] [address] Procedures Date Code Description Status 08/15/2018 44763 Sleep Study Unattended,HRT Rate,Oxygen Sat,Resp Completed Effort/Airflow 06/11/2018 94190 Stress Test Completed 05/21/2013 [id number] Mammogram Completed 04/12/2011 [id number] Mammogram Completed 07/24/2010 29162 Screening Vision Test Completed 03/28/2010 [id number] Mammogram Completed 06/23/2008 74687 EKG Tracing & Interpretation Completed 06/23/2008 10627 EKG Tracing & Interpretation Completed Encounters Type Date Location Provider Dx Diagnosis Office Visit 10/15/2018 [facility] [place] G47.33 Obstructive sleep 9:00a [facility] Maxwell apnea (adult) [facility] (pediatric) Office Visit 08/12/2018 [facility] [place], R06.83 Snoring 8:00a [facility] Sandhu R53.83 Other fatigue E66.09 Other obesity due to excess calories Z68.34 Body mass index (BMI) 34.0-34.9, adult Office Visit 04/13/2015 10:00a [facility], H92.02 Otalgia, left C.M.A. AT [place].Nick ear [place] J01.00 Acute maxillary sinusitis, unspecified Office Visit 07/24/2010 2:00p DO Not Use Aviation Program Manager Johanna V70.0 Examination General AT Kellie Rodriguez M.D. Medical Routine AT Health Care Facility Office Visit 12/01/2009 2:00p DO Not Use Aviation Program Manager Nurse Visits v70.3 Examination Other AT Kellie - [facility] For Administrative Purpose Office Visit 11/10/2009 10:40a DO Not Use Aviation Program Manager Roger E. 701.9 Hypertrophic & AT Kellie Chiu M.D. Atrophic Conditions Of Skin Unspec Office Visit 03/22/2009 3:30p DO Not Use Aviation Program Manager Roger E. 465.9 URI Upper AT Kellie Chiu M.D. Respiratory Infections Acute Unspec Sites Office Visit 10/28/2008 10:30a [place] [facility] Roger E. 381.01 Otitis Media Serous Assoc AT Dulce Chiu Acute [facility] Office Visit 08/02/2008 3:15p [place] [facility] Roger E. 780.79 Malaise And Fatigue Assoc AT Dulce Chiu Other [facility] Office Visit 06/23/2008 9:00a [place] 796.2 Blood Pressure Assoc AT Dulce Chiu Reading Elevated W/O [facility] Hypertension Office Visit 07/30/2007 2:30p [place] Elia [place] 465.9 URI Upper Assoc AT Dulce Chiu Respiratory [facility] Infections Acute Unspec Sites Office Visit 04/16/2007 2:15p [place] Elia [place] 780.79 [facility] Fatigue [facility] AT [facility] Chiu Other [facility] Plan of Treatment 01/01/2019 - [place] Maxwell, ANIYAHG47.33 Obstructive sleep apnea (adult) ( pediatric)Follow up:1 yearRecommendations:If you have any sleepiness while driving you MUST avoid operating a vehicle or machinery. If you have difficulty with your equipment, or need to replace your mask or hoses, please contact your homecare agency. If you have any further questions, please call the [facility] at [phone] Obesity, unspecifiedRecommendations:Keep up the good work with your weight loss efforts!
[2019-01-04] MEDS ORDERED: Ibuprofen TAB* 600 MG PO ONE (15:36)
[2019-01-04 15:57] VITALS: BP 125/74
== END 2019-01-04 15:40 | disposition home or self-care (01) ==
LOC: ED 11:54
DX: S16.1XXA Strain of muscle, fascia and tendon at neck level, initial encounter (principal); S20.219A Contusion of unspecified front wall of thorax, initial encounter; V43.52XA Car driver injured in collision with other type car in traffic accident, initial encounter; Y92.410 Unspecified street and highway as the place of occurrence of the external cause; I10 Essential (primary) hypertension; Z88.1 Allergy status to other antibiotic agents; Z88.0 Allergy status to penicillin; Z88.2 Allergy status to sulfonamides; Z79.899 Other long term (current) drug therapy; M50.322 Other cervical disc degeneration at C5-C6 level
CPT/HCPCS: 72050; 72125; 99282

== ENCOUNTER 2019-02-24 15:44 | Emergency (ER) | payer BC, OTHER ==
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
--- NOTE | 2019-02-24 17:38 | UC ---
Throat Pain/Nasal Reuben HPI - HPI Summary HPI Summary: 48 y/o female presents to the urgent care c/o sinus congestion and yellowish nasal discharge for the past week. Pt reports Hx of sinusitis in the past. Pt states she was seen by her PCP last Friday02/22/2019 and Dx w/ sinusitis and Rx nasal spray. However symptoms have worsen w/ B/L ear pain LF>RT, pain is 6/10, moderate PND, sinus pain and pressure, dry cough. She has taken Nyquill and Dayquill to alleviate symptoms. Today she noticed decrease hearing. Pt denies fever, but has felt chills, SOB, wheezing, chest pain, dizziness, abdominal pain , N/V/d. - History of Current Complaint Chief Complaint: UCGeneralIllness Stated Complaint: POSS SINUS INFECTION Time Seen by Provider: 02/24/19 17:37 Hx Obtained From: Patient Hx Last Menstrual Period: 04/16/18 ?: No Onset/Duration: Gradual Onset, Lasting Weeks - 1 week, Still Present, Worse Since - yesterday w/ B/L ear pain Severity: Moderate Pain Intensity: 7 Pain Scale Used: 0-10 Numeric Cough: Nonproductive Associated Signs & Symptoms: Positive: Sinus Discomfort, Nasal Discharge - yellowish. Negative: Wheezing, Fever Related History: Other (Noted In Comments) - Hx of sinusitis - Allergies/Home Medications Allergies/Adverse Reactions: Allergies Allergy/AdvReac Type Severity Reaction Status Date / Time erythromycin base Allergy Intermediate Rash Verified 02/24/19 15:56 Penicillins Allergy Intermediate Rash Verified 02/24/19 15:56 Sulfa (Sulfonamide Allergy Intermediate Rash Verified 02/24/19 15:56 Antibiotics) PMH/Surg Hx/FS Hx/Imm Hx Previously Healthy: Yes Cardiovascular History: Hypertension - Surgical History Surgical History: Yes Surgery Procedure, Year, and Place: TONSILLECTOMY 1985 - Family History Known Family History: Positive: Cardiac Disease, Hypertension, Diabetes - Social History Occupation: Employed Full-time Lives: With Family Alcohol Use: Occasionally Substance Use Type: None Smoking Status (MU): Never Smoked Tobacco Review of Systems All Other Systems Reviewed And Are Negative: Yes Constitutional: Positive: Negative Skin: Positive: Negative Eyes: Positive: Negative ENT: Positive: Ear Ache - B/L ear pain, Nasal Discharge - yellow, Sinus Congestion, Sinus Pain/Tenderness, Other - Moderate PND Respiratory: Positive: Cough - dry Cardiovascular: Positive: Negative Gastrointestinal: Positive: Negative Genitourinary: Positive: Negative Motor: Positive: Negative Neurovascular: Positive: Negative Musculoskeletal: Positive: Negative Neurological: Positive: Negative Psychological: Positive: Negative Is Patient Immunocompromised?: No Physical Exam - Summary Physical Exam Summary: Vital signs: reviewed General: well developed, well nourished female sitting in the examining table w/ o any apparent distress Skin: [place], warm and dry, no evidence of atopic dermatitis, psoriasis, seborrhea.Tenderness on maxillary and frontal sinuses on percussion HEENT: -Head: atraumatic, non tender; no scalp dermatitis. -Eyes: sclera and conjunctiva clear, PERRLA, EOMI -Ears: no pre- or postauricular lymphadenopathy or erythema; B/L external ear canals WNL, Rt TM WNL, LF TM injected w/ erythema and bulging w/o any perforation and mild yellowish discharge. Nose: erythematous and edematous nasal mucosa with yellowish rhinorrhea, Moderate yellowish PND -Mouth/Throat: Mucous membrane moist, posterior pharynx clear, no erythema or exudates. Neck: supple, FROM, nontender, no lymphadenopathy, no meningismus. Chest: Clear to auscultation, normal breath sounds Abd: soft, Bowel sounds active, Nontender. Back: no spinal or CVAT Neuro: A&O x4, GCS 15, no focal neuro deficits, normal behavior for age. Triage Information Reviewed: Yes Vital Signs: Initial Vital Signs Temp 97.6 F 02/24/19 15:57 Pulse 103 02/24/19 15:57 Resp 18 02/24/19 15:57 BP 137/94 02/24/19 15:57 Pulse Ox 96 02/24/19 15:57 Throat Pain/Nasal Course/Dx - Course Course Of Treatment: 48 y/o female presents to the urgent care c/o sinus congestion and yellowish nasal discharge for the past week. Pt reports Hx of sinusitis in the past. Pt states she was seen by her PCP last Friday02/22/2019 and Dx w/ sinusitis and Rx nasal spray. However symptoms have worsen w/ B/L ear pain LF>RT, pain is 6/10, moderate PND, sinus pain and pressure, dry cough. She has taken Nyquill and Dayquill to alleviate symptoms. Today she noticed decrease hearing. Pt denies fever, but has felt chills, SOB, wheezing, chest pain, dizziness, abdominal pain , N/V/d. Hx obtained. Pt w/ Left otitis media and bacterial sinusitis on examination. Pt allergiv to multiple antibiotics. Pt with 1 week of symptoms getting worse. Pt Rx Doxycycline PO and flonase nasal spray. Pt's BP is elevated today advised to decrease salt in diet, monitor BP and f/u with PCP for further management. Discharge instructions explained to Pt. Advised to Return to the clinic or PCP if symptoms do not improve.Pt understood and agreed with plan of care. - Differential Dx/Diagnosis Differential Diagnosis/HQI/PQRI: Influenza, Otitis Media, Pharyngitis, Sinusitis , Tonsillitis, URI Provider Diagnosis: Left otitis media, Acute sinusitis, Uncontrolled hypertension Discharge ED - Sign-Out/Discharge Documenting (check all that apply): Patient Departure - d/C home All imaging exams completed and their final reports reviewed: No Studies - Discharge Plan Condition: Stable Disposition: HOME Prescriptions: DOXYcycline CAP(*) [DOXYcycline 100MG CAP(*)] 100 mg PO BID #14 cap Fluticasone NASAL SPRAY 50MCG* [Flonase NASAL SPRAY 50MCG*] 2 spray BOTH NARES DAILY #1 btl Patient Education Materials: Sinusitis (ED), Ear Infection (ED) Referrals: Brielle Diaz MD [Primary Care Provider] - 3 Days Additional Instructions: 1- Please take the full course of the antibiotic to avoid resistance.Take yogurts w/ probiotics or Culturelle to protect your GI system 2-Please take ibuprofen PO q6-8hrs prn as instructed after meals to alleviate pain and swelling. Increase fluid intake, eat well, rest and avoid strenuous exercise 3- Use Flonase nasal spray and salined drops as directed to alleviate symptoms 4-If symptoms do not improve or worsen please return to the urgent care or f/u with your PCP in 3 days for further evaluation and treatment. 5- Your BP is elevated today. please decrease salt in your diet, monitor BP and if it continues to be elevated please f/u with your PCP for further management. - Billing Disposition and Condition Condition: STABLE Disposition: Home
[2019-02-24 18:15] VITALS: BP 138/90
== END 2019-02-24 17:55 | disposition home or self-care (01) ==
LOC: UCEAST 15:44
DX: J01.90 Acute sinusitis, unspecified (principal); H66.92 Otitis media, unspecified, left ear; I10 Essential (primary) hypertension; Z88.0 Allergy status to penicillin; Z88.2 Allergy status to sulfonamides
CPT/HCPCS: 99212; G0463

== ENCOUNTER 2019-04-04 15:22 | Emergency (ER) | payer BC ==
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
[2019-04-04 15:38] VITALS: BP 115/80
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
[2019-04-04] MEDS ORDERED: Ketorolac INJ* 30 MG/ML 1 ML VIAL IM ONE (16:00)
== END 2019-04-04 16:41 | disposition home or self-care (01) ==
LOC: UCEAST 15:22
DX: M54.5 Low back pain (principal); R20.0 Anesthesia of skin; I10 Essential (primary) hypertension; Z88.0 Allergy status to penicillin; Z88.2 Allergy status to sulfonamides; Z88.1 Allergy status to other antibiotic agents
CPT/HCPCS: 72100; 96372; 99212; G0463; J1885

== ENCOUNTER 2019-09-01 14:52 | Day surgery (SDC) | payer BC ==
[~2019-09-01 14:52] MED LIST: Acetaminophen TAB* 325 MG PO ONE; Buffered Lidocaine 1% SYRIN* 1 ML/SYRINGE INTRADERM ONE; Famotidine IV* 10 MG/ML 2 ML (20 mg) IV ONE; Lactated Ringers 1000 ML Bag* 1,000 ML IV SCH
[2019-09-01] MEDS ORDERED: Acetaminophen TAB* 325 MG ONE (15:28)
[2019-09-01] MEDS ORDERED: Buffered Lidocaine 1% SYRIN* 1 ML/SYRINGE INTRADERM ONE (15:29)
[2019-09-01] MEDS ORDERED: Famotidine IV* 10 MG/ML 2 ML (20 mg) ONE (15:29)
[2019-09-01] MEDS ORDERED: Clindamycin 900 MG/D5W BAG(*) 900 MG/50 ML BAG IVPB ONE (15:33)
[2019-09-01] MEDS ORDERED: Bupivacaine 0.5%* 50 ML MDV VIAL ONE (15:43)
[2019-09-01] MEDS ORDERED: Midazolam* 1 MG/ML 5 ML VIAL (5 MG) ONE (16:08)
[2019-09-01] MEDS ORDERED: Lidocaine 2% PF * 5 ML VIAL ONE (16:08)
[2019-09-01] MEDS ORDERED: Propofol* 10 MG/ML 20 ML BTL ONE (16:08)
[2019-09-01] MEDS ORDERED: Dexamethasone IV* 4 MG/ML 1 ML (4 MG) ONE (16:08)
[2019-09-01] MEDS ORDERED: fentaNYL* 50 MCG/ML 2 ML VIAL (100 MCG VIAL) ONE ×2 (16:08→16:54)
[2019-09-01] MEDS ORDERED: Ketorolac INJ* 30 MG/ML 1 ML VIAL ONE (16:08)
[2019-09-01] MEDS ORDERED: Ondansetron INJ* 2 MG/ML VIAL ONE ×2 (16:08→19:07)
[2019-09-01] MEDS ORDERED: HYDROmorphone INJ1* 1 MG/ML SYRINGE ONE (17:54)
[2019-09-01] MEDS ORDERED: DiMENhydriNATE IV* 50 MG/ML VIAL ONE (19:20)
[2019-09-01 20:14] VITALS: BP 130/86
--- NOTE | 2019-09-02 00:24 | OP ---
DATE OF OPERATION: 09/01/19 - [facility] DATE OF : 68 SURGEON: Salvatore Burk MD. MANAGEMENT INFORMATION SYSTEMS DIRECTOR: KARLOS Rossi. A physician office clerk assistant was required for the length of the procedure for assistance with patient positioning, retraction, instrumentation, and closure. ANESTHESIOLOGIST: Dr. Dat Post. ANESTHESIA: General anesthesia, local anesthesia using Marcaine 0.5% without epinephrine 10 cc. PRE-OP DIAGNOSES: 1. Right elbow lateral epicondylitis. 2. Right elbow common extensor tendon tear, partial width full thickness, displaced or retracted. POST-OP DIAGNOSES: 1. Right elbow lateral epicondylitis. 2. Right elbow common extensor tendon tear, partial width full thickness, displaced or retracted. OPERATIVE PROCEDURE: Right elbow open debridement lateral epicondyle and ECRB and open repair of ECRB and common extensor tendon. ANTIBIOTICS: Ancef 2 g IV. IV FLUIDS: See anesthesia note. CELF-VD-GETY TIME: 44 minutes. TOURNIQUET TIME: 51 minutes of right upper arm tourniquet at 250 mmHg. SPECIMEN: None. IMPLANTS: SutureTak double-loaded suture anchor from [employer]. COMPLICATIONS: None. ESTIMATED BLOOD LOSS: Minimal. INDICATIONS FOR PROCEDURE: The patient is a 48-year-old woman with chronic right elbow lateral epicondylitis that has responded insufficiently to a full- spectrum of nonoperative treatment, who opted for operative treatment. I discussed risks and potential complications of surgery as well as postoperative limitations during recovery process. MRI showed partial width full-thickness tear of the common extensor tendon with 7 mm of retraction. DESCRIPTION OF PROCEDURE: In preoperative holding, the patient signed a written consent. Her operative extremity was marked in preoperative holding. The patient was taken back to the operating room and kept on the stretcher. Sedated and intubated. Tourniquet was applied. Hand table was applied. A bump was placed under the right elbow. Right upper extremity was then prepped and draped. Surgical time- out was performed. Esmarch was applied and the tourniquet was elevated. I made a long and oblique incision over the skin starting in the area overlying the supracondylar ridge. The skin incision was 5 cm long. I dissected down to the extensor fascia. I identified the interval between the ECRL and the EDC. I made a longitudinal split. Deep to these tendons was the ECRB that had completely torn off of the lateral epicondyle. This was easily brought back down to bone without significant tension. I identified the kenny-shaped origin of ECRB in the lateral epicondyle. I debrided that bone with a curette. I also identified some retracted torn capsule deep to the ECRB. I used the scratch test to remove some poor quality tissue from the ECRB and surrounding tissues. Irrigation. I next drilled and placed my SutureTak anchor into lateral epicondyle. I used a free needle to pass stitches. I placed a horizontal mattress stitch in the ECRB tendon. I then placed a stitch with 1 limb through the capsule, retracted , and another through some EDC tissue, deep. I used one of these 2 sets of sutures to pass a second horizontal mattress stitch. This apposed the ECRB tissue nicely to bone, I pulled back some of the capsule, and also apposed nicely some deep EDC tissue and the ECRB tissue. I next closed the more superficial tissue, the ECRL to the EDC. I did so closing the overlying fascial layer with a running stitch watertight with a Vicryl 0 suture. I also over part of that distance used a running stitch using an Ethibond 0 suture. Irrigation. Closure of the subcutaneous tissue with buried simple stitches using Vicryl 3-0 suture. Closure of subcuticular layer with a running stitch using Monocryl 3-0 suture. Local anesthesia was injected. Mastisol, Steri-Strips, 4x4s, sterile Webril. A splint was applied. Posterior slab followed by sugar-tong. This was a long- arm splint. Overwrapped with an Mike bandage. The patient was placed in a sling. Awakened, extubated, and transferred to the PACU. DISPOSITION: The patient was discharged home in a splint and sling. She was given Percocet as needed for pain control and a 3-day course of doxycycline for prophylaxis of infection. The patient was told that she could follow up approximately 1 week postoperatively either 6 or 8 days postoperatively. At that point, we will do a wound check, remove the splint, and convert the patient to a removable wrist brace that she will wear until she is 6 weeks postoperative. As well we will allow the patient to do physical therapy. [id number]/CPS #: [id number] [facility]ENTERKael
== END 2019-09-01 20:16 | disposition home or self-care (01) ==
LOC: OR 14:52
PROVIDERS: ATTEND Orthopaedic Surgery
DX: M77.11 Lateral epicondylitis, right elbow (principal); R73.03 Prediabetes; I10 Essential (primary) hypertension; F41.8 Other specified anxiety disorders; G47.33 Obstructive sleep apnea (adult) (pediatric); M50.30 Other cervical disc degeneration, unspecified cervical region
CPT/HCPCS: 81025; A9270-GY; C1713; J1100; J1170; J1240; J1885; J2250; J2405; J2704; J3010; J3490